=== PATIENT | male | born 1965 | race Caucasian/White ===

== ENCOUNTER 2017-03-22 01:50 | Emergency (ER) | payer SELFPAY ==
[~2017-03-22] VITALS: Ht 177.8 cm; Wt 63.5 kg
[~2017-03-22 01:50] MED LIST: ANAPROX DS550 MG PO; HYDROCODONE BIT1 T11 PO; KEFLEX500 MG PO; NAPROSYN500 MG PO; NEURONTIN300 MG PO; NKHM; ZOVIRAX800 MG PO
[2017-03-22] MEDS ORDERED: AUGMENTIN 500 M1 TAB PO (03:10)
== END 2017-03-22 04:08 | disposition home or self-care (01) ==
LOC: ED 01:50
DX: S40.861A Insect bite (nonvenomous) of right upper arm, initial encounter (principal); M25.571 Pain in right ankle and joints of right foot; A69.20 Lyme disease, unspecified; W57.XXXA Bitten or stung by nonvenomous insect and other nonvenomous arthropods, initial encounter; Y93.9 Activity, unspecified; Y92.9 Unspecified place or not applicable; Y99.9 Unspecified external cause status

== ENCOUNTER 2017-04-10 14:48 | Emergency (ER) | payer OTHER ==
[~2017-04-10] VITALS: Ht 177.8 cm; Wt 72.6 kg
--- NOTE | ~2017-04-10 | EKG ---
[place], [place] ELECTROCARDIOGRAM REPORT NAME: WILD SUNG UNIT #: [id number] ROOM: DOCTOR: GIUSEPPE MATHIS MD BIRTHDATE: [birth year] DOS: 04/10/2017 TIME: 1609 hours. FINDINGS: 1. Sinus bradycardia at 52 beats per minute. 2. The tracing is normal. 3. No previous is available for comparison. GIUSEPPE MATHIS MD CM:EKGRPT:ELECTROCARDIOGRAM REPORT [id number] GIUSEPPE MATHIS MD
[~2017-04-10 14:48] MED LIST changes: +AUGMENTIN 500 M1 TAB PO
[2017-04-10 16:20] LABS: BASO % 0.3 % (0.0-1.0); EOS # 0.2 10*3/uL (0.0-0.4); EOS % 3.5 % (1.0-4.0); HEMATOCRIT 47.3 % (42.0-52.0); HEMOGLOBIN 16.2 g/dl (14.0-18.0); LYMPH # 1.6 10*3/uL (1.3-4.4); LYMPH % 22.9 % (27.0-41.0); MEAN CELL VOLUME 86.8 fl (80.0-94.0); MEAN CORPUSCULAR HGB 29.7 pg (27.0-31.0); MEAN CORPUSCULAR HGB CONC 34.2 g/dl (33.0-37.0); MEAN PLATELET VOLUME 9.9 fl (9.6-12.3); MONO # 0.3 10*3/uL (0.1-1.0); MONO % 3.8 % (3.0-9.0); NEUT # 4.7 10*3/uL (2.3-7.9); NEUT % 69.2 % (47.0-73.0); PLATELET COUNT AUTOMATED 182 10*3/uL (130-400); RED BLOOD COUNT 5.45 10*6/uL (4.50-5.90); RED CELL DISTRI WIDTH 12.5 % (0-14.5); WHITE BLOOD COUNT 6.8 10*3/uL (4.8-10.8)
[2017-04-10 16:30] LABS: PROTHROMBIN TIME 10.7 SECONDS (9.0-12.4)
[2017-04-10 16:36] LABS: ALBUMIN 4.1 gm/dl (3.1-4.5); ALKALINE PHOSPHATASE 76 U/L (45-117); BILIRUBIN, TOTAL 0.5 mg/dl (0.2-1.0); BUN 12 mg/dl (7-24); CARBON DIOXIDE 33 mmol/L (21-32); CHLORIDE 102 mmol/L (98-107); CKMB 0.9 ng/ml (0.5-3.6); CPK 160 U/L (39-308); EST GLOM FILT AFRICAN AMERICAN > 60 ml/min; GLUCOSE 86 mg/dL (65-99); MAGNESIUM 2.3 mg/dL (1.5-2.1); POTASSIUM 4.4 mmol/L (3.5-5.1); SGOT/AST 19 IU/L (3-35); SGPT/ALT 22 U/L (12-78); SODIUM 141 mmol/L (136-145); TOTAL PROTEIN 7.6 gm/dL (6.4-8.2)
[2017-04-10 16:39] LABS: C-REACTIVE PROTEIN < 0.29 MG/DL (0-0.3); TROPONIN I < 0.015 ng/ml (<0.045)
[2017-04-10] MEDS ORDERED: EC NAPROSYN500 MG PO (17:11)
== END 2017-04-10 18:19 | disposition home or self-care (01) ==
LOC: ED 14:48
PROVIDERS: Emergency Medicine
DX: M25.571 Pain in right ankle and joints of right foot (principal)

== ENCOUNTER 2021-10-28 13:02 | Emergency (ER) | payer OTHER ==
[~2021-10-28] VITALS: Wt 68.0 kg
[~2021-10-28 13:02] MED LIST changes: +EC NAPROSYN500 MG PO; +PREDNISONE50 MG PO
== END 2021-10-28 19:02 | disposition left against medical advice (07) ==
LOC: ED 13:02
DX: M25.512 Pain in left shoulder (principal); Z53.21 Procedure and treatment not carried out due to patient leaving prior to being seen by health care provider

== ENCOUNTER 2022-06-25 13:39 | Emergency (ER) | payer OTHER ==
[2022-06-25] MEDS ORDERED: EPIPEN 2-P0.3 MG/0.3 IJ (14:06)
[2022-06-26] MEDS ORDERED: PREDNISONE10 MG PO (04:00)
== END 2022-06-25 16:35 | disposition home or self-care (01) ==
LOC: ED 13:39
DX: R21 Rash and other nonspecific skin eruption (principal); T63.441A Toxic effect of venom of bees, accidental (unintentional), initial encounter; Z79.899 Other long term (current) drug therapy; Y92.89 Other specified places as the place of occurrence of the external cause

== ENCOUNTER 2022-06-26 02:18 | Emergency (ER) | payer OTHER ==
[~2022-06-26] VITALS: Ht 177.8 cm; Wt 65.8 kg
[~2022-06-26 02:18] MED LIST changes: +EPIPEN 2-P0.3 MG/0.3 IJ
[2022-06-26] MEDS ORDERED: PREDNISONE10 MG PO (04:00)
== END 2022-06-26 04:20 | disposition home or self-care (01) ==
LOC: ED 02:18
DX: L50.8 Other urticaria (principal); T63.461A Toxic effect of venom of wasps, accidental (unintentional), initial encounter; F17.200 Nicotine dependence, unspecified, uncomplicated; Z79.899 Other long term (current) drug therapy; Y92.89 Other specified places as the place of occurrence of the external cause